=== PATIENT | female | born 1985 | race Caucasian/White ===

== ENCOUNTER → 2017-05-29 | Outpatient (CLI) | payer SELFPAY ==
[~2017-05-29] VITALS: Ht 157.5 cm; Wt 66.4 kg
[2017-05-29 14:13] VITALS: BP 107/62; PULSE 92; RESP 18; Ht 157.5 cm; Wt 66.4 kg
--- NOTE | 2017-05-29 15:06 | PN ---
Date/Time of Note Date/Time of Note DATE: 05/29/17 TIME: 15:04 Assessment/Plan Assessment/Plan Assessment/Plan [facility] Outpatient Progress Note Date of Service: 05/29/2017 Today's Assessment & Plan: Overall stable and doing well post laparoscopic cholecystectomy. No indications of major postoperative complications or wound problems. No indication for acute surgical intervention. With above assessment, I've recommended the following for today: 1. Follow-up with Dr. Randolph for removal of common bile duct stent; consider repeat MRCP or axial imaging if mid common bile duct stricture was still present at time of stent removal 2. Follow-up with PCP 3. Follow-up with us as needed Updated clinical summary: A very pleasant 31-year-old lady with a few comorbidities, presenting with gallstone pancreatitis, status post ERCP and stenting. Comorbidities: 1. BMI 26.9 2. UTI (20,000 cfu/ml Streptococcus agalactiae (Group B); [facility] 04/30/17) 3. Gallstone pancreatitis. Status post ERCP at [facility] by Dr. 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 Sand particle removal from common bile duct. There was good filling of the gallbladder. S/p an otherwise uncomplicated laparoscopic cholecystectomy at [facility] on 05/07/17with findings of acute cholecystitis in the setting of recent gallstone pancreatitis. Subjective: No major events or complaints; no abd pain and no longer taking medications; no n/v/d; no sob or cp; + flatus; + BM and normal; + activity Objective: Vitals: See below Exam: GENERAL: On exam, the patient was sitting up in a chair and appeared to be comfortable and in no acute distress. ABDOMEN: Soft, nontender and nondistended. Incisions are clean, dry and intact without any evidence of erythema, edema, discharge, or hernia. There are no peritoneal signs or guarding. SKIN: Skin appears to be pink and feels warm to touch. NEUROLOGIC: Patient is awake, alert, and follows commands appropriately. Exam/Review of Systems Vital Signs Vitals Vital Signs Date Time Temp Pulse Resp B/P Pulse Ox O2 Delivery O2 Flow Rate FiO2 05/29/17 14:13 98.4 92 18 107/62 98 Room Air GENIE DAWKINS M.D. May 29, 2017 15:06
== END | disposition home or self-care (01) ==
LOC: HPC 14:03
PROVIDERS: ATTEND Transplant Surgery
DX: K80.80 Other cholelithiasis without obstruction (principal); K85.90 Acute pancreatitis without necrosis or infection, unspecified; Z87.440 Personal history of urinary (tract) infections